=== PATIENT | female | born 1990 | race Caucasian/White ===

== ENCOUNTER 2019-05-17 11:38 | Day surgery (SDC) | payer BC ==
[2019-05-17 12:27] VITALS: BMI 44.6
[2019-05-17] MEDS ORDERED: Metoclopramide HCl 10 MG/2 ML VIAL IVP PRN (12:35)
[2019-05-17] MEDS ORDERED: hydrALAZINE 20 MG/ML VIAL SLOW IVP PRN (12:35)
[2019-05-17] MEDS ORDERED: diphenhydrAMINE 50 MG/ML VIAL IVP PRN (12:36)
[2019-05-17] MEDS ORDERED: Acetaminophen 500 MG TAB PO SCH (12:41)
[2019-05-17 13:10] LABS: #Eosinphils 0.3 thou/uL (0.0-0.7); #Lymphocytes 2.3 thou/uL (1.20-3.40); #Monocytes 0.6 thou/uL (0.11-0.59); #Neutrophils 7.1 thou/uL (1.40-6.50); %Basophils 0.4 % (0.0-1.0); %Eosinophils 2.8 % (0.0-10.0); %Lymphocytes 22.1 % (21.0-51.0); %Monocytes 6.2 % (0.0-10.0); %Neutrophils 68.5 % (42.0-75.0); Hemoglobin 9.8 g/dL (12.0-16.0); Mean Corpuscular HGB CONC 35.3 g/dL (32.0-36.0); Mean Corpuscular Hemoglobin 30.4 pg (27.0-31.0); Mean Corpuscular Volume 86.1 fL (78.0-98.0); Mean Platelet Volume 7.6 fL (7.4-10.4); Platelet Count 209 thou/uL (130-400); RBC Distribution Width 13.1 % (11.5-14.5); Red Blood Cell (RBC) Count 3.23 mill/uL (4.20-5.40); White Blood Cell (WBC) Count 10.3 thou/uL (4.8-10.8)
[2019-05-17 13:40] LABS: ALT (SGPT) 11 U/L (8-55); AST (SGOT) 12 U/L (5-34); Albumin 3.2 g/dL (3.5-5.0); Alkaline Phosphatase 226 U/L (40-110); Anion Gap 13 mmol/L (10-20); BUN (Urea Nitrogen) 6 mg/dL (7.0-18.7); Bilirubin, Total 0.3 mg/dL (0.2-1.2); Calc. Creatinine Clearance 278 mL/min (70-130); Carbon Dioxide 19 mmol/L (22-29); Chloride 106 mmol/L (98-107); Estimated GFR-MDRD Greater than 90; Globulin 3.3 g/dL (2.4-3.5); Glucose 81 mg/dL (70-105); Potassium 3.6 mmol/L (3.5-5.1); Protein, Total 6.5 g/dL (6.0-8.3); Sodium 134 mmol/L (136-145)
[2019-05-17 13:40] LABS: Creatinine, Urine 146.03 mg/dL (47-110)
--- NOTE | 2019-05-17 15:26 | PDOC.LDHP ---
Labor and Delivery H&P Chief complaint: other (PIH workup) HPI: 28 y/o G1 at 34w1d presents for PIH workup. Patient reports mildly elevated BPs in clinic and a headache last night that has improved today. Called clinic and was told to come in for evaluation. Denies scotoma, RUQ pain, VB, LOF, ctx , or decreased FM. ROS neg for HEENT, CV, pulm, GI, , neuro, psych, skin, musculoskeletal, or constitutional symptoms other than mentioned above OB: Dr. Humphrey OB History Details: First Current complications: pregestational diabetes Past Medical History: Hypothyroid Current medications: pre- vitamins, other (metformin, synthroid) Previous surgical history: none Allergies/Adverse Reactions: Allergies Allergy/AdvReac Type Severity Reaction Status Date / Time ciprofloxacin [From Cipro] Allergy Nausea Verified 05/17/19 12:16 Social history: none - Physical Exam Vital signs reviewed and normal: yes General: NAD, resting Lungs: nonlabored breathing Abdomen: gravid Extremeties: no edema FHT: category 1 (145, mod variability, + accels, single variable deceleration) Citrus contractions every: occasional - Assessment 28 y/o G1 at 34w1d with no e/p preeclampsia. Labs wnl. GUERRERO improved with Tylenol. status reassuring with reactive NST. - Plan -: D/c home with precautions. Advised to follow up in clinic next week.
== END 2019-05-17 14:20 | disposition home health service (06) ==
LOC: L&D/OP 11:38
PROVIDERS: ATTEND Obstetrics & Gynecology
DX: O16.3 Unspecified maternal hypertension, third trimester (principal); O24.415 Gestational diabetes mellitus in pregnancy, controlled by oral hypoglycemic drugs; O99.283 Endocrine, nutritional and metabolic diseases complicating pregnancy, third trimester; E03.9 Hypothyroidism, unspecified; Z3A.34 34 weeks gestation of pregnancy; Z79.84 Long term (current) use of oral hypoglycemic drugs; Z79.899 Other long term (current) drug therapy; Z88.1 Allergy status to other antibiotic agents
CPT/HCPCS: 36415; 80053; 82570; 84156; 85025

== ENCOUNTER 2019-06-09 17:39 | Inpatient (IN) | payer BC ==
--- NOTE | 2019-06-09 16:26 | PDOC.LDHP ---
Labor and Delivery H&P Chief complaint: scheduled induction (For induced hypertension.) HPI: 28 y/o WF at 37 weeks and 3 days with edc of 06/27. complicated by onset of induced hypertension at 34 weeks. Urine protein 1+. Serial labs normal. Blood pressures range 140-150/80-90. No symptoms. Current gestational age (weeks): 37 Due date: 06/27/19 Dating criteria: last menstrual period (and confirmatory first trimester ultrasound.) Grav: 1 Para: 0 Current complications: hypertension, other (PCOS on metformin/ hypothyroidism/stable left ovarian cyst 3.7 x 2.1 cm...) Abnormal US findings: No Past Medical History: PCOS/HYPOTHYROIDISM/Left ovarian cyst Current medications: pre- vitamins (metformin/synthroid) Previous surgical history: none Allergies/Adverse Reactions: Allergies Allergy/AdvReac Type Severity Reaction Status Date / Time ciprofloxacin [From Cipro] Allergy Nausea Verified 05/17/19 12:16 Social history: none - Vaginal Exam cm dilated: 0 Effacement: 25% Station: -1 - OB Labs Blood type: A RH: positive Antibody Screen: negative HIV: negative RPR: negative HEPSAg: negative 1 hour GCT: negative GBS: negative Urine drug screen: negative Rubella: immune - Assessment L&D Assessment: medically indicated induction (Mild gestational hypertension at 37-38 nweeks.) - Plan Plan: admit to L&D, cervical ripening, labor augmentation if indicated (blood pressure monitoring along with PIH labs. Antihypertensive therapy and or magnesium sulfate prophylaxis if indicated.), anesthesia consult for pain management (Labs and blood pressure monitoring. Magnesium prophylaxis if indicated along with hypertensive therapy...)
[~2019-06-09 17:39] MED LIST: Bupivacaine 0.25% HCL 30 ML VIAL ONE; Bupivacaine HCl 0.5%/Epinephrine 1:200,000/PF 30 ml Vial ONE; Bupivacaine/Epinephrine 0.25% 30 ML VIAL ONE
[2019-06-09] MEDS ORDERED: hydrALAZINE 20 MG/ML VIAL SLOW IVP PRN (18:07)
[2019-06-09] MEDS ORDERED: Acetaminophen 500 MG TAB PO PRN (18:07)
[2019-06-09] MEDS ORDERED: Carboprost 250 MCG/ML AMP IM PRN (18:07)
[2019-06-09] MEDS ORDERED: Promethazine HCl 25 MG/ML VIAL IM PRN (18:07)
[2019-06-09] MEDS ORDERED: Misoprostol 200 MCG TAB PR PRN (18:07)
[2019-06-09] MEDS ORDERED: HYDROcodone/Acetaminophen 5/325 mg Tablet PO PRN (18:07)
[2019-06-09] MEDS ORDERED: NS / Oxytocin 40 units/1000ml 1,000 ML IV PRN (18:07)
[2019-06-09] MEDS ORDERED: Butorphanol Tartrate 1 MG/ML VIAL SLOW IVP PRN (18:07)
[2019-06-09] MEDS ORDERED: Ondansetron PF 4 MG/2 ML Vial IVP PRN (18:07)
[2019-06-09] MEDS ORDERED: Ibuprofen 800 MG TAB PO PRN (18:07)
[2019-06-09] MEDS ORDERED: Lidocaine 1% (PF) 30 ML VIAL SC PRN (18:07)
[2019-06-09] MEDS: Lactated Ringer's 1,000 ML IV SCH (18:11)
[2019-06-09 18:19] LABS: Hemoglobin 10.7 g/dL (12.0-16.0); Mean Corpuscular HGB CONC 34.3 g/dL (32.0-36.0); Mean Corpuscular Hemoglobin 29.7 pg (27.0-31.0); Mean Corpuscular Volume 86.6 fL (78.0-98.0); Mean Platelet Volume 8.7 fL (7.4-10.4); Platelet Count 238 thou/uL (130-400); RBC Distribution Width 13.8 % (11.5-14.5); White Blood Cell (WBC) Count 10.9 thou/uL (4.8-10.8)
[2019-06-09 18:21] VITALS: BMI 45.4
[2019-06-09 18:33] LABS: ALT (SGPT) 8 U/L (8-55); AST (SGOT) 21 U/L (5-34); Albumin 3.4 g/dL (3.5-5.0); Alkaline Phosphatase 329 U/L (40-110); Anion Gap 16 mmol/L (10-20); BUN (Urea Nitrogen) 8 mg/dL (7.0-18.7); Bilirubin, Total 0.3 mg/dL (0.2-1.2); Calc. Creatinine Clearance 284 mL/min (70-130); Calcium 9.2 mg/dL (7.8-10.44); Carbon Dioxide 17 mmol/L (22-29); Chloride 108 mmol/L (98-107); Estimated GFR-MDRD Greater than 90; Globulin 3.1 g/dL (2.4-3.5); Glucose 91 mg/dL (70-105); Potassium 4.1 mmol/L (3.5-5.1); Protein, Total 6.5 g/dL (6.0-8.3); Sodium 137 mmol/L (136-145)
[2019-06-09] MEDS: NS w/ Oxytocin 10 units 500 ML IV SCH (18:36)
[2019-06-09] MEDS: Misoprostol 100 MCG TAB VAG SCH ×2 (18:36→21:32)
[2019-06-09 18:57] LABS: Syphilis Antibody Nonreactive (Nonreactive); Syphilis Antibody Index 0.06 S/CO (<1.00 Non-Reactive)
[2019-06-09 19:02] LABS: HBSAg Index 0.21 S/CO (0-0.99); Hep B Surf Ag Non-Reactive S/CO (NonReactive)
[2019-06-10] MEDS: Misoprostol 100 MCG TAB VAG SCH ×3 (00:48→18:03)
[2019-06-10] MEDS: Calcium Carbonate 500 MG ChewTAB PO PRN ×2 (00:59→11:56)
[2019-06-10] MEDS: Lactated Ringer's 1,000 ML IV SCH ×3 (04:38→19:01)
[2019-06-10] MEDS: NS w/ Oxytocin 10 units 500 ML IV SCH (06:21)
[2019-06-10] MEDS ORDERED: Fentanyl 4 mcg/Bup 0.1% Cadd 100 ML ONE (17:47)
[2019-06-10] MEDS: Famotidine 20 MG TAB PO SCH (18:17)
[2019-06-10] MEDS ORDERED: diphenhydrAMINE 50 MG/ML VIAL IVP PRN (18:52)
[2019-06-10] MEDS ORDERED: Acetaminophen 325 MG TAB PO PRN (18:52)
[2019-06-10] MEDS ORDERED: Naloxone HCl 0.4 mg/ml Vial IVP PRN ×2 (18:52)
[2019-06-10] MEDS ORDERED: ePHEDrine/0.9% NaCl/PF SYRINGE 50 mg/10 ml SLOW IVP PRN (18:52)
[2019-06-10] MEDS ORDERED: Promethazine HCl 25 MG/ML VIAL IM PRN (18:52)
[2019-06-10] MEDS ORDERED: Ondansetron PF 4 MG/2 ML Vial IVP PRN (18:52)
[2019-06-10] MEDS ORDERED: Lactated Ringer's 500 ML IV PRN (18:52)
[2019-06-10] MEDS ORDERED: Communication Order-Pharmacy FS SCH (19:00)
[2019-06-11] MEDS: Fentanyl 4 mcg/Bupivacaine 0.1% Cassette 100 ML EPIDURAL SCH ×2 (01:09→06:15)
[2019-06-11] MEDS ORDERED: Fentanyl 4 mcg/Bup 0.1% Cadd 100 ML ONE (06:13)
[2019-06-11] MEDS ORDERED: Bupivacaine 0.25% HCL 30 ML VIAL ONE (06:37)
[2019-06-11] MEDS ORDERED: Fentanyl 100 MCG/2 ML VIAL ONE (08:18)
[2019-06-11] MEDS: Lactated Ringer's 1,000 ML IV SCH (09:34)
--- NOTE | 2019-06-11 12:05 | PDOC.OPDEL ---
OB Operative/Delivery Note Delivery Dr/Surgeon: Kam Pre-Delivery Diagnosis: medically indicated induction Procedure/Post Delivery Dx: spontaneous vaginal delivery Weeks gestation: 37 Anesthesia: epidural - Findings A Sex: female - 1 min: 9 - 5 min: 9 - Additional Findings/Plan Placenta delivered: spontaneous Repaired Obstetrical Laceration: 1st degree Estimated blood loss: 150ml Post delivery plan: routine recovery
[2019-06-11] MEDS ORDERED: Bisacodyl 10 MG SUPP PR PRN (12:07)
[2019-06-11] MEDS ORDERED: hydrALAZINE 20 MG/ML VIAL SLOW IVP PRN (12:07)
[2019-06-11] MEDS ORDERED: Milk Of Magnesia 30 ML UDCUP PO PRN (12:07)
[2019-06-11] MEDS ORDERED: diphenhydrAMINE 25 MG CAP PO PRN (12:07)
[2019-06-11] MEDS ORDERED: Benzocaine-Menthol 82.5 ML CAN TOP PRN (12:07)
[2019-06-11] MEDS ORDERED: NS / Oxytocin 40 units/1000ml 1,000 ML IV SCH (12:15)
[2019-06-11] MEDS: Ibuprofen 800 MG TAB PO SCH ×2 (16:48→21:44)
[2019-06-11] MEDS: Ferrous Sulfate 325 MG TAB PO SCH (16:48)
[2019-06-11] MEDS: traMADol HCl 50 MG TAB PO PRN (16:50)
[2019-06-11] MEDS: Docusate Calcium (SURFAK) 240 MG CAP PO SCH (21:44)
[2019-06-12] MEDS: Ibuprofen 800 MG TAB PO SCH ×3 (06:26→21:39)
--- NOTE | 2019-06-12 08:31 | PDOC.PP ---
Post Progress Note Post Day #: 1 PO intake tolerated: yes Flatus: yes Ambulation: yes Vital Signs (12 hours) Temp Pulse Resp BP Pulse Ox 06/12/19 08:07 97.8 F 86 20 107/61 97 06/12/19 04:00 97.8 F 84 18 104/57 L 06/12/19 00:09 97.7 F 85 18 121/64 Weight Weight 265 lb - Physical Examination Respiratory: clear to auscultation bilaterally, non-labored breathing Result Diagrams: 06/09/19 18:09 06/09/19 18:09 Additional Labs: Post Labs Blood Type A POSITIVE 06/09/19 18:33 Hep Bs Antigen Non-Reactive S/CO (NonReactive) 06/09/19 18:09 - Assessment/Plan Post #1. Doing well. Blood pressure normalized. routine care.
[2019-06-12] MEDS: Ferrous Sulfate 325 MG TAB PO SCH ×2 (08:40→14:51)
[2019-06-12] MEDS: traMADol HCl 50 MG TAB PO PRN (08:42)
[2019-06-12] MEDS: Docusate Calcium (SURFAK) 240 MG CAP PO SCH ×2 (08:42→21:39)
[2019-06-12] MEDS: Prenatal Vitamin 1 TAB PO SCH (08:42)
[2019-06-12] MEDS ORDERED: Adacel (T-DAP) 0.5 ML SYRINGE IM ONE (09:00)
[2019-06-12] MEDS: Lactated Ringer's 1,000 ML IV SCH (21:01)
[2019-06-12] MEDS: Misoprostol 100 MCG TAB VAG SCH ×2 (21:01→21:02)
[2019-06-12] MEDS: Famotidine 20 MG TAB PO SCH (21:01)
[2019-06-13] MEDS: Ibuprofen 800 MG TAB PO SCH ×2 (05:09→15:15)
--- NOTE | 2019-06-13 08:03 | PDOC.PP ---
Post Progress Note Post Day #: 2 PO intake tolerated: yes Flatus: yes Ambulation: yes Vital Signs (12 hours) Temp Pulse Resp BP Pulse Ox 06/12/19 21:00 98.6 F 94 16 109/56 L 97 Weight Weight 265 lb Result Diagrams: 06/09/19 18:09 06/09/19 18:09 Additional Labs: Post Labs Blood Type A POSITIVE 06/09/19 18:33 Hep Bs Antigen Non-Reactive S/CO (NonReactive) 06/09/19 18:09 - Assessment/Plan Post day 2. Blood pressures normal. Ready for discharge. If baby has to stay for bili lights, then b&B...Has 6 weeks follow up.
[2019-06-13 08:19] VITALS: BP 118/67; TEMP 97.9
[2019-06-13] MEDS: Docusate Calcium (SURFAK) 240 MG CAP PO SCH (09:05)
[2019-06-13] MEDS: Prenatal Vitamin 1 TAB PO SCH (09:05)
[2019-06-13] MEDS: Ferrous Sulfate 325 MG TAB PO SCH (09:06)
[2019-06-13] MEDS ORDERED: Measles/Mumps/Rubella 10 MCG/0.5 ML VIAL SC ONE (17:30)
== END 2019-06-13 18:55 | disposition home or self-care (01) | DRG 807 ==
LOC: L&D 17:39 → 3SW 06-11 17:39
PROVIDERS: ADMIT Obstetrics & Gynecology; ATTEND Obstetrics & Gynecology
PROC: 10E0XZZ Delivery of Products of Conception, External Approach (ICD-10-PCS; principal; 2019-06-13)
PROC: 0HQ9XZZ Repair Perineum Skin, External Approach (ICD-10-PCS; 2019-06-13)
DX: O13.4 Gestational [pregnancy-induced] hypertension without significant proteinuria, complicating childbirth (principal); Z37.0 Single live birth; O99.284 Endocrine, nutritional and metabolic diseases complicating childbirth; E03.9 Hypothyroidism, unspecified; Z3A.37 37 weeks gestation of pregnancy; O70.0 First degree perineal laceration during delivery
CPT/HCPCS: 36415; 51702; 80053; 85027; 86780; 86850; 86900; 86901; 87340; 90707; J0670; J2405; J2590; J3010; S0020